=== PATIENT | female | born 1950 | race Hispanic/Latino ===

== ENCOUNTER → 2023-03-19 | Outpatient (CLI) | payer MEDICARE ==
[~2023-03-19] MED LIST: IOHEXOL 350 MG/ML 100ML INFUS..BTL IV ONE; METOPROLOL TARTRATE 1 MG/ML 5ML VIAL IV ONE
== END | disposition home or self-care (01) ==
LOC: RAH 10:00
PROVIDERS: ATTEND Student in an Organized Health Care Education/Training Program
DX: R07.9 Chest pain, unspecified (principal)
CPT/HCPCS: 75574; J3490; Q9967